=== PATIENT | female | born 1990 ===

== ENCOUNTER 2020-12-02 15:21 | Outpatient (CLI) | payer MEDICAID ==
--- NOTE | 2020-12-03 08:52 | XRAY Report ---
PROCEDURE: Ribs w/PA Chest LT INDICATIONS: LEFT SIDE RIB PAIN TECHNIQUE: 3 views of the left ribs were acquired, along with a single view chest. COMPARISON: None FINDINGS: Surgical changes and devices: None. Bones and chest wall: No fractures or dislocations. No suspicious bony lesions. Overlying soft tis sues appear unremarkable. Lungs and pleura: No pleural effusions or pneumothorax. Lungs appear clear. Mediastinum: Mediastinal contours appear normal. Heart size is normal. IMPRESSION: No obvious displaced left rib fracture is seen. No suspicious rib lesion. No acute cardiopulmonary pa thology. Reviewed by: Saúl Ferrari MD on 12/03/2020 8:50 AM PDT Approved by: Saúl Ferrari MD on 12/03/2020 8:50 AM PDT Station ID: [id number]
== END 2020-12-02 15:22 ==
LOC: DI.N 15:21
PROVIDERS: ATTEND Family Medicine
DX: R07.81 Pleurodynia (principal)